=== PATIENT | male | born 1985 | race Caucasian/White ===

== ENCOUNTER → 2021-08-16 | Outpatient (CLI) | payer OTHER ==
--- NOTE | 2021-08-16 16:35 | RAD ---
XR KNEE_RT 1-2 VIEWS History: Reason: KNEE PAIN, AMPUTATION SEVERAL YEARS AGO, FITTING FOR NEW PROSTHET / Spl. Instruction s: / History: Technique: 2 views right knee Comparison: None. Findings: Right lower extremity amputation at the level of the joint. Internal fixation healed femur fracture. Dystrophic ossification adjacent to the distal femur. No acute fracture. Impression: 1. No acute osseous abnormality. 2. Right lower extremity amputation. Electronically signed by: Alex Huffman DO (08/16/2021 4:32 PM) [id number]
== END ==
LOC: RAD 13:44
PROVIDERS: ATTEND Physician Assistant
DX: T87.89 Other complications of amputation stump (principal); M79.604 Pain in right leg
CPT/HCPCS: 73560